=== PATIENT | female | born 1955 | race Caucasian/White ===

== ENCOUNTER → 2022-09-28 15:30 | Outpatient (CLI) | payer OTHER, SELFPAY ==
--- NOTE | ~2022-09-28 | XR_ITS ---
XR foot LT min 3V DATE: 09/28/2022 15:48 INDICATION: Dropped during table and top of foot 2 weeks ago. Pain. TECHNIQUE: 4 views COMPARISON: None FINDINGS: No fracture or dislocation, periosteal reaction or bone destruction is detected. Joint spac es are preserved. No erosive change. IMPRESSION: No fracture or dislocation Reviewed, dictated and finalized at location A. IMPRESSION: No fracture or dislocation
== END ==
PROVIDERS: PCP Family Medicine; Visit Provider Family Medicine
DX: M79.672 Pain in left foot (principal)
CPT/HCPCS: 73630

== ENCOUNTER 2022-10-20 14:59 | Outpatient (CLI) | payer OTHER, SELFPAY ==
[2022-10-20 15:33] LABS: Kit Draw Collected
== END 2022-10-20 15:00 | disposition home or self-care (01) ==
LOC: ANHGOSHLAB 15:02
PROVIDERS: PCP Family Medicine
DX: L65.9 Nonscarring hair loss, unspecified (principal); Z13.0 Encounter for screening for diseases of the blood and blood-forming organs and certain disorders involving the immune mechanism; L30.9 Dermatitis, unspecified; L27.0 Generalized skin eruption due to drugs and medicaments taken internally
CPT/HCPCS: 36415

== ENCOUNTER 2023-04-03 15:56 | Outpatient (CLI) | payer OTHER, SELFPAY ==
[2023-04-03 20:05] LABS: Anion Gap 9 mmol/L (8-16); Blood Urea Nitrogen 13 mg/dL (7-17); Calcium 9.6 mg/dL (8.4-10.2); Carbon Dioxide 26 mmol/L (22-30); Chloride 103 mmol/L (98-107); Estimated Glomerular Filt Rate > 60; Glucose 92 mg/dL (65-110); Sodium 138 mmol/L (137-145)
[2023-04-03 20:14] LABS: Parathyroid Intact 55.6 pg/mL (7.5-53.5)
[2023-04-05 11:15] LABS: Ionized Calcium 4.9 mg/dL (4.7-5.5)
== END 2023-04-03 15:57 | disposition home or self-care (01) ==
LOC: ANHGOSHLAB 15:57
PROVIDERS: PCP Emergency Medicine; Visit Provider Emergency Medicine
DX: E83.52 Hypercalcemia (principal)
CPT/HCPCS: 36415; 80048; 82330; 83970

== ENCOUNTER 2023-05-29 15:41 | Outpatient (CLI) | payer OTHER, SELFPAY ==
[2023-05-29 19:39] LABS: Vitamin D 25 Hydroxy 38.1 ng/mL
== END 2023-05-29 15:42 | disposition home or self-care (01) ==
LOC: ANHGOSHLAB 15:43
PROVIDERS: PCP Emergency Medicine
DX: J31.0 Chronic rhinitis (principal)
CPT/HCPCS: 36415; 82306; 82785; 86003

== ENCOUNTER 2023-10-09 15:57 | Outpatient (CLI) | payer OTHER, SELFPAY ==
[2023-10-09 19:29] LABS: Alanine Aminotransferase 23 U/L (6-35); Albumin Level 4.6 g/dL (3.5-5.1); Alkaline Phosphatase 96 U/L (38-126); Anion Gap 11 mmol/L (4-12); Aspartate Amino Transferase 37 U/L (14-36); Bilirubin,Total 0.5 mg/dL (0.2-1.3); Blood Urea Nitrogen 12 mg/dL (7-17); Calcium 9.5 mg/dL (8.4-10.2); Carbon Dioxide 26 mmol/L (22-30); Chloride 101 mmol/L (98-107); Estimated Glomerular Filt Rate > 60; Glucose 91 mg/dL (65-110); Potassium 3.7 mmol/L (3.4-5.0); Sodium 138 mmol/L (137-145)
[2023-10-09 19:41] LABS: Parathyroid Intact 81.1 pg/mL (7.5-53.5)
== END 2023-10-09 15:58 | disposition home or self-care (01) ==
LOC: ANHGOSHLAB 15:58
PROVIDERS: PCP Emergency Medicine; Visit Provider Emergency Medicine
DX: E21.3 Hyperparathyroidism, unspecified (principal)
CPT/HCPCS: 36415; 80053; 82330; 83970; 84443

== ENCOUNTER 2024-06-25 07:54 | Outpatient (CLI) | payer OTHER, SELFPAY ==
--- OUTSIDE RECORDS SUMMARY | 2024-06-25 08:00 | XMS_ITS | Encounter Summary ---
Author Organization [facility] Address [address] [place] [address] Care Team Providers Care Transportation Planning Engineer Name Role Phone Polo Bishop MD Primary Care Provider [phone] Encounter Details Date Type Department Care Team (Late st Contact Info) Description 10/29/1998 Outpatient Historical [facility] Virginia Mcgee Endometrial hyperplasia (Primary Dx) Social History Tobacco Use Types Packs/Day Years Used Date Smoking Tobacco: Never Assessed Comments Unknown Sex and Gender Information Value Date Recorded Sex Assigned at Not on file Legal Sex Female 2:37 AM MEDICAL MANAGEMENT SPECIALIST Gender Identity Not on file Sexual Orientation Not on file documented as of this encounter Plan of Treatment Upcoming Encounters Date Type Department Care Team (Late st Contact Info) Description 10/22/2024 3:30 PM CDT [facility] Visit [facility] ELECTRIC METER READER - [address] [phone] Jayda Powell ROOFER METAL [address] [place] [address] documented as of this encounter Visit Diagnoses Diagnosis Endometrial hyperplasia- Primary documented in this encounter Care Teams Transportation Planning Engineer Relationship Specialty Start Date End Date Pool Bishop MD [address] [place] [address] [place] [address] PCP - General Internal Medicine 08/30/20 documented as of this encounter
--- OUTSIDE RECORDS SUMMARY | 2024-06-25 08:00 | XMS_ITS | Encounter Summary ---
Author Organization [facility] Address [address] [place] [address] Care Team Providers Care Produce Wrapper Name Role Phone Polo Bishop MD Primary Care Provider Encounter Details Date Type Department Care Team (Late st Contact Info) Description 05/06/1999 Outpatient Historical [facility] Yoselyn Melendez MD NO ADDRESS ON FILE Unspecified disorder of female genital organs (Primary Dx) Social History Tobacco Use Types Packs/Day Years Used Date Smoking Tobacco: Never Assessed Comments Unknown Sex and Gender Information Value Date Recorded Sex Assigned at Not on file Legal Sex Female 2:37 AM PARTS DRIVER Gender Identity Not on file Sexual Orientation Not on file documented as of this encounter Plan of Treatment Upcoming Encounters Date Type Department Care Team (Late st Contact Info) Description 10/22/2024 3:30 PM CDT Office Visit [facility] ENTRY SPECIALIST - [address] [phone] Jayda Powell NP [address] [place] [address] documented as of this encounter Visit Diagnoses Diagnosis Unspecified disorder of female genital organs- Primary documented in this encounter Care Teams Produce Wrapper Relationship Specialty Start Date End Date Polo Bishop MD [address] [place] [address] [place] [address] PCP - General Internal Medicine 08/30/20 documented as of this encounter
--- OUTSIDE RECORDS SUMMARY | 2024-06-25 08:00 | XMS_ITS | Referral Summary ---
Author Organization [facility] [address] [facility] [address] Address [address] [place] [address] Care Team Providers Care Gear Keeper Name Role Phone Polo Bishop MD Primary Care Provider [phone] Encounters Date Type Department Care Team Description 04/08/2024 3:30 PM RENTAL CAR FERRY DRIVER Office Visit [facility] Cardiology [address] [place] [address] Sánchez Ryan MD Paroxysmal atrial fibrillation (HCC) (Primary Dx) from Last 3 Months Allergies Active Allergy Reactions Criticality Noted Date Comments Brimonidine-Timolol Other (See comments) Medium 2017 Eyes inflamed & painful Morphine Nausea & Vomiting Low 02/01/2010 Netarsudil Other (See comments) Low 09/06/2018 Dry, irritated, red eyes Penicillins Stomach upset Low 05/29/2017 Sulfa (Sulfonamide Antibiotics) Stomach upset Low 05/29/2017 Medications bimatoprost (LUMIGAN) 0.01 % ophthalmic drops 1 drop nightly Activ e dorzolamide-susan olol, PF, 2-0.5 % dropperette Administer into affected eye(s) 2 (two) times a day. Active cycloSPORINE (RESTASIS) 0.05 % ophthalmic emulsion 1 drop 2 (two) times a day Active Xiidra 5 % dropperette INSTILL 1 DROP INTO BOTH EYES TWICE A DAY DIRECTED 08/29/19 21 Active multivitamin with iron tablet Take 1 tablet by mouth daily Active cranberry 400 mg capsule Take by mouth Activ e Xarelto 20 mg tablet TAKE 1 TABLET BY MOUTH EVERY DAY 90 tablet 2 03/24/19 25 Active sotaloL (BETAPACE) 80 mg tablet TAKE 1 TABLET BY MOUTH TWICE A DAY 180 tablet 06/25/19 25 Active sotaloL (BETAPACE) 80 mg tablet TAKE 1 TABLET BY MOUTH TWICE A DAY 180 tablet 03/24/19 25 025 Discontinued Active Problems Problem Noted Date Diagnosed Date Paroxysmal atrial fibrillation 05/29/2017 Social History Tobacco Use Types Packs/Day Years Used Date Smoking Tobacco: Never Smokeless Tobacco: Never Tobacco Cessation:Counseling Given: Not Answered Alcohol Use Standard Drinks/Week Comments No 0 (1 standard drink = 0.6 oz pur e alcohol) Comments Unknown Sex and Gender Information Value Date Recorded Sex Assigned at Not on file Legal Sex Female 7:59 PM RENTAL CAR FERRY DRIVER Gender Identity Not on file Sexual Orientation Not on file Last Filed Vital Signs Vital Sign Reading Time Taken Comments Blood Pressure 118/80 04/08/2024 3:32 PM RENTAL CAR FERRY DRIVER Pulse 62 04/08/2024 3:32 PM RENTAL CAR FERRY DRIVER Temperature - - Respiratory Rate - - Oxygen Saturation 99% 04/08/2024 3:32 PM RENTAL CAR FERRY DRIVER Inhaled Oxygen Concentration - - Weight 88.5 kg (195 lb) 04/08/2024 3:32 PM RENTAL CAR FERRY DRIVER Height 162.6 cm (5' 4 ) 04/08/2024 3:32 PM RENTAL CAR FERRY DRIVER Body Mass Index 33.47 04/08/2024 3:32 PM RENTAL CAR FERRY DRIVER Plan of Treatment Not on file Procedures Procedure Name Priority Date/Time Associated Diagnosis Comments LIPID PANEL Routine 04/08/2024 3:25 PM RENTAL CAR FERRY DRIVER ELECTROCARDIOGRAM REPORT Routine 025 12:12 PM RENTAL CAR FERRY DRIVER Paroxysmal atrial fibrillation (HCC) from Last 3 Months Results * Lipid panel (04/08/2024 3:25 PM RENTAL CAR FERRY DRIVER) SCRIBED Cholesterol, Total 258 <100 EX[facility] LAB Comment:40 SCRIBED LDL 168 <100 EXTERNAL LAB SCRIBED Triglycerides 249 <150 EXTERNAL LAB Blood 04/08/2024 3:25 PM RENTAL CAR FERRY DRIVER us Sánchez Ryan MD LAB BLOOD ORDERABLES Fin al Result EXTERNAL LAB * Electrocardiogram Report (04/08/2024 12:12 PM RENTAL CAR FERRY DRIVER) us Sánchez Ryan MD ECG ORDERABLES Final Re sult from Last [place] [address] [facility] Care Teams Gear Keeper Relationship Specialty Start Date End Date Polo Bishop MD [address] [place] [address] PCP - General Internal Medicine 04/23/17
--- OUTSIDE RECORDS SUMMARY | 2024-06-25 08:00 | XMS_ITS | Encounter Summary ---
Author Organization [facility] Address 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) Social History Tobacco Use Types Packs/Day Years Used Date Smoking Tobacco: Never Assessed Comments Unknown Sex and Gender Information Value Date Recorded Sex Assigned at Not on file Legal Sex Female 2:37 AM HOT AIR FURNACE INSTALLER AND REPAIRER Gender Identity Not on file Sexual Orientation Not on file documented as of this encounter Plan of Treatment Upcoming Encounters Date Type Department Care Team (Late st Contact Info) Description 10/22/2024 3:30 PM CDT Office Visit [facility] DENTAL EQUIPMENT MECHANIC - [address] [phone] Jayda Powell NP [address] [place] [address] documented as of this encounter Visit Diagnoses Diagnosis Malignant neoplasm of central portion of female breast (CMS/HCC) Malignant neoplasm of central portion of female breast documented in this encounter Care Teams Foil Stamp Operator Relationship Specialty Start Date End Date Polo Bishop MD [address] [place] [phone] PCP - General Internal Medicine 08/30/20 documented as of this encounter
--- OUTSIDE RECORDS SUMMARY | 2024-06-25 08:00 | XMS_ITS | Encounter Summary ---
Author Organization [facility] Address [address] [place] [address] Care Team Providers Care Milk Receiver Tank Truck Name Role Phone Polo Bishop MD Primary Care Provider [phone] Encounter Details Date Type Department Care Team (Latest Contact Info) Description 08/31/2007 Outpatient Historical [facility], [address] Yoselyn Melendez MD NO ADDRESS ON FILE Laboratory Examination Social History Tobacco Use Types Packs/Day Years Used Date Smoking Tobacco: Never Assessed Comments Unknown Sex and Gender Information Value Date Recorded Sex Assigned at Not on file Legal Sex Female 2:37 AM BATCHING OPERATOR Gender Identity Not on file Sexual Orientation Not on file documented as of this encounter Plan of Treatment Upcoming Encounters Date Type Department Care Team (Late st Contact Info) Description 10/22/2024 3:30 PM CDT Office Visit [facility] SHOES HAND SEWER - [address] [address] Jayda Powell NP [address] [place] [address] documented as of this encounter Procedures Procedure Name Priority Date/Time Associated Diagnosis Comments CBC WITH DIFFERENTIAL Routine 08/31/2007 12:45 PM CDT CALCITRIOL Routine 08/31/2007 12:45 PM CDT LIPID PANEL Routine 08/31/2007 12:45 PM CDT COMPREHENSIVE METABOLIC PANEL Routine 08/31/2007 12:45 PM CDT documented in this encounter Results * (ABNORMAL) VITAMIN D 1,25 DIHYDROXY (08/31/2007 12:45 PM CDT) Pathologist [facility] VITAMIN D 1,25 DIHYDROXY 67(H) pg/mL [facility] Comment: Reference Range: 15-60 Lab test performed by: [email or web address] [address] [place] [address] Angel HARE MD Blood specimen (specimen) 08/31/2007 12:45 PM CDT 08/31/2007 1:37 PM CDT us Yoselyn Melendez MD CHEMISTRY ORDERABLES Final R esult [facility] CLIA# [id number] [address] [facility] [place] [address] * CBC WITH DIFFERENTIAL (08/31/2007 12:45 PM CDT) [facility] WBC 6.3 4.0 - 9.8 K/uL [facility] MCH 29.5 27.2 - 32.6 pg [facility] MPV 10.2 9.3 - 12.4 fL [facility] HEMATOCRIT 41.3 35.5 - 44.0 % [facility] RDW-STDEV 41.1 37.1 - 48.7 fL [facility] RBC 4.71 3.90 - 4.90 M/uL [facility] MCHC 33.7 31.5 - 35.5 % [facility] MCV 87.7 82.0 - 99.0 fL [facility] PLATELETS 254 140 - 350 K/uL [facility] HEMOGLOBIN 13.9 11.8 - 14.8 g/dL [facility] RDW 12.8 11.5 - 14.5 % [facility] LYMPHOCYTES 25 16 - 45 % [facility] LYMPHOCYTE ABSOLUTE 1.57 0.70 - 4.50 K/uL [facility] BASOPHILS 0 0 - 2 % [facility] BASOPHILS ABSOLUTE 0.02 0.00 - 0.20 K/uL [facility] MONOCYTES 7 3 - 13 % [facility] MONOCYTE ABSOLUTE 0.44 0.10 - 1.30 K/uL [facility] NEUTROPHILS 65 45 - 70 % [facility] NEUTROPHIL ABSOLUTE 4.10 1.90 - 7.00 K/uL [facility] EOSINOPHILS 3 0 - 7 % [facility] EOSINOPHIL ABSOLUTE 0.18 0.00 - 0.70 K/uL [facility] Blood specimen (specimen) 08/31/2007 12:45 PM CDT 08/31/2007 1:26 PM CDT us Yoselyn Melendez MD HEMATOLOGY ORDERABLES Edited INTERFACE SYSTEM Refer to clinic/hospital department [facility] CLIA# [id number] [address] [facility] [place] [address] * (ABNORMAL) LIPID PANEL (08/31/2007 12:45 PM CDT) TRIGLYCERIDE 87 10 - 149 mg/dL [facility] HDL 58 40 - 59 mg/dL [facility] CHOL/HDL RATIO 3.9 2.0 - 5.0 [facility] CHOLESTEROL 228(H) 100 - 199 mg/dL [facility] LDL CALCULATED 153(H) <=99 mg/dL [facility] LIPID PANEL COMMENT See Below [facility] Comment: The adult ATP and pediatric NCEP classifications for lipids are available on the [facility] Intranet at: [email or web address] Select: Lab Policies and Procedures,Current Select: Lipid Panel Interpretation Blood specimen (specimen) 08/31/2007 12:45 PM CDT 08/31/2007 1:24 PM CDT Narrative [facility] - 08/31/2007 2:42 PM CDT FASTING us Yoselyn Melendez MD CHEMISTRY ORDERABLES Edited [facility] CLIA# [id number] [address] [place], [place] [address] * COMPREHENSIVE METABOLIC PANEL (08/31/2007 12:45 PM CDT) CREATININE 0.65 0.51 - 0.95 mg/dL [facility] SODIUM 138 135 - 145 mmol/L [facility] ALT 16 0 - 31 U/L [facility] ALKALINE PHOSPHATASE 98 35 - 104 U/L [facility] BILIRUBIN TOTAL 0.5 0.2 - 1.0 mg/dL [facility] CO2 24 22 - 30 mmol/L [facility] TOTAL PROTEIN 7.8 6.3 - 8.6 g/dL [facility] POTASSIUM 3.5 3.5 - 4.9 mmol/L [facility] GLUCOSE 78 65 - 99 mg/dL [facility] AST 23 12 - 32 U/L [facility] BUN 10 6 - 20 mg/dL [facility] CALCIUM 8.8 8.4 - 10.2 mg/dL [facility] CHLORIDE 101 96 - 108 mmol/L [facility] ALBUMIN 4.6 3.4 - 4.8 g/dL [facility] GFR, >60 >=60 mL/min/1.7 sq meter [facility] GFR >60 >=60 mL/min/1.7 sq meter [facility] Comment: Modification of Diet in Renal Disease (MDRD) study formula. Estimated GFR rate interpretative information for both Americans and non- Americans is available on the [facility] Intranet at: [email or web address] Select: Lab Policies and Procedures Select: Reference Ranges - GFR Blood specimen (specimen) 08/31/2007 12:45 PM CDT 08/31/2007 1:24 PM CDT us Yoselyn Melendez MD CHEMISTRY ORDERABLES Edited [facility] CLIA# [id number] [address] [facility] [place] [address] documented in this encounter Visit Diagnoses Diagnosis Laboratory examination documented in this encounter Care Teams Milk Receiver Tank Truck Relationship Specialty Start Date End Date Polo Bishop MD [address] [place] [phone] PCP - General Internal Medicine 08/30/20 documented as of this encounter
--- OUTSIDE RECORDS SUMMARY | 2024-06-25 08:00 | XMS_ITS | Encounter Summary ---
Author Organization [facility] Address [address] [place] [address] Care Team Providers Care Joist Setter Name Role Phone Polo Bishop MD Primary Care Provider [phone] Encounter Details Date Type Department Care Team (Latest Contact Info) Description 01/12/2000 Inpatient Historical [facility] Yoselyn Melendez MD NO ADDRESS ON FILE Polyp of corpus uteri (Primary Dx) Social History Tobacco Use Types Packs/Day Years Used Date Smoking Tobacco: Never Assessed Comments Unknown Sex and Gender Information Value Date Recorded Sex Assigned at Not on file Legal Sex Female 2:37 AM MEDICAL AFFAIRS DIRECTOR Gender Identity Not on file Sexual Orientation Not on file documented as of this encounter Plan of Treatment Upcoming Encounters Date Type Department Care Team (Late st Contact Info) Description 10/22/2024 3:30 PM CDT Office Visit [facility] SATELLITE INSTALLER [address] [facility] [address] [address] Jayda Powell NP [address] [place] [address] documented as of this encounter Visit Diagnoses Diagnosis Polyp of corpus uteri- Primary documented in this encounter Care Teams Joist Setter Relationship Specialty Start Date End Date Polo Bishop MD [address] [place] [address] [place] [address] PCP - General Internal Medicine 08/30/20 documented as of this encounter
--- OUTSIDE RECORDS SUMMARY | 2024-06-25 08:00 | XMS_ITS | Encounter Summary ---
Author Organization [facility] Address [address] [place] [address] Care Team Providers Care Nip Wrapper Name Role Phone Polo Bishop MD Primary Care Provider [phone] Encounter Details Date Type Department Care Team (Latest Contact Info) Description 08/15/2007 Outpatient Historical [facility], [address] Yoselyn Melendez MD NO ADDRESS ON FILE Screening for Malignant Neoplasm of the Cervix Social History Tobacco Use Types Packs/Day Years Used Date Smoking Tobacco: Never Assessed Comments Unknown Sex and Gender Information Value Date Recorded Sex Assigned at Not on file Legal Sex Female 2:37 AM STILL OPERATOR HELPER Gender Identity Not on file Sexual Orientation Not on file documented as of this encounter Plan of Treatment Upcoming Encounters Date Type Department Care Team (Late st Contact Info) Description 10/22/2024 3:30 PM CDT Office Visit [facility] PARTY PLAN SALES HOST/HOSTESS [address] [address] Jayda Powell NP [address] [place] [address] documented as of this encounter Procedures Procedure Name Priority Date/Time Associated Diagnosis Comments CERV/VAG CYTOPATH, SUREPATH AND HPV Routine 08/15/2007 10:53 PM CDT documented in this encounter Results * CERV/VAG CYTOPATH, SUREPATH AND HPV (08/15/2007 10:53 PM CDT) SOURCE Vagina [facility] LAST MENSTRUAL PERIOD [facility] HPV HIGH RISK DNA DETECTION NOT DETECTED [facility] Comment: REFERENCE RANGE: NOT DETECTED PATIENTS WITHOUT HIGH-RISK HPV RARELY HAVE CERVICAL CANCER. THE ANALYTICAL PERFORMANCE CHARACTERISTICS OF THIS ASSAY, WHEN USED TO TEST SUREPATH OR VAGINAL SPECIMENS, HAVE BEEN DETERMINED BY [employer]. METHODOLOGY: HYBRID CAPTURE WITH SIGNAL AMPLIFICATION. Lab test performed by: [facility] [address] [place] [address] POLO AMADOR MD ORACLE SOFTWARE ENGINEER: SOPHIE SUTHERLAND(ASCP) [facility] Comment: Lab test performed by: [facility] [employer] [facility] [address] [place] [address] POLO AMADOR MD REPORT STATUS FINAL [facility] PREV PAP: Information not provided [facility] ADEQUACY: SATISFACTORY FOR EVALUATION [facility] PREV BX: Information not provided [facility] CLINICAL INFORMATION Normal exam Hysterectomy, total [facility] PAP INTERP Negative for intraepithelial lesion or malignancy. Atrophic pattern; predominantly parabasal cells [facility] Vaginal 08/15/2007 10:5 3 PM CDT 08/15/2007 11:01 PM CDT us Yoselyn Melendez MD PATHOLOGY/CYTOLOGY ORDERABLE S Edited [facility] CLIA# [id number] [address] [place] [address] documented in this encounter Visit Diagnoses Diagnosis Screening for malignant neoplasm of the cervix documented in this encounter Care Teams Nip Wrapper Relationship Specialty Start Date End Date Polo Bishop MD [address] [place] [phone] PCP - General Internal Medicine 08/30/20 documented as of this encounter
--- OUTSIDE RECORDS SUMMARY | 2024-06-25 08:00 | XMS_ITS | Continuity of Care Document ---
Author Organization [facility] Address [address] [facility] [address] [place] [address] Phone Care Team Providers Care Master Sonar Technician Name Role Phone Jade HWANG, Dunia Unavailable Unavailable Allergies, Adverse Reactions, Alerts Substance Reaction Status Criticality BEPOTASTINE BESILATE Active No Info rmation morphine Active No Information TIMOLOL MALEATE Active No Informati on BRIMONIDINE TARTRATE Active No Info rmation NETARSUDIL MESYLATE Active No Infor mation lifitegrast Active No Information Medications Medication Instructions Dosage Effective Dates (start - stop) Status Comments oasis tears (unknown strength) Not Available - Active Centrum Silver Women 8 mg iron-400 mcg-50 mcg tablet - Active cranberry 400 mg capsule - Active desoximetasone 0.05 % topical gel apply by topical route 2 times every day a thin layer to the affected area(s) ; rub in gently and completely 0.00 - Active eye vitamins ORAL CAPSULE - Active Flonase Allergy Relief 50 mcg/actuation nasal spray,suspension inhale 2 spray by intranasal route every day in each nostril 100 MCG - Active juice plus (unknown strength) Not Available - Active ipratropium bromide 21 mcg (0.03 %) nasal spray spray 2 spray by intranasal route 2- 3 times every day in each nostril 2.00 spray - Active mometasone furoate (bulk) 100 % powder - Active sotalol 80 mg tablet take 1 tablet by oral route 2 times every day 80 MG - Active Singulair 10 mg tablet take 1 tablet by oral route every day in the evening 10 MG - Active Pataday Once Daily Relief 0.2 % eye drops instill 1 drop by ophthalmic route every day into affected eye(s) 1.00 drop - Active Vanicream Moisturizing lotion - Active Vanicream topical - Active Vyzulta 0.024 % eye drops instill 1 drop by ophthalmic route every day into affected eye(s) in the evening 1.00 drop - Active Xarelto 20 mg tablet take 1 tablet by oral route every day with the evening meal 20 MG - Active COSOPT PF (unknown strength) instill 1 drop by ophthalmic route 2 times every day into affected eye(s) Not Available - Active Procedures Procedure Date OFFICE/OUTPATIENT VISIT, NEW GDX Optic Nerve OFFICE/OUTPATIENT VISIT, EST Results Test Name Date and Time Measure Units Reference Range Abnormal Flag Status Commen ts Panel Description: [id number] Final Image Zeiss Result 5 Panel Description: [id number] Final Image Zeiss Result 6 Panel Description: [id number] Final Image Zeiss Result 7 Panel Description: [id number] Final Image Zeiss Result 8 Panel Description: [id number] Final Image Zeiss Result 9 Panel Description: [id number] Final Image Zeiss Result 10 Panel Description: [id number] Final Image Zeiss Result 11 Panel Description: [id number] Final Image Zeiss Result 1 Panel Description: [id number] Final Image Zeiss Result 2 Panel Description: [id number] Final Image Zeiss Result 3 Panel Description: [id number] Final Image Zeiss Result 4 Advance Directives Directive Yes / No Effective Date File Name No Information Encounters Encounter Description Practice Location Reason(s) For Visit Diagnoses Date Provider Providers Copied on Encounter OFFICE/OUTPA TIENT VISIT, [facility], [address], [id number], tel:[phone] OPH CONSULT CASANDRA NAM glaucoma evaluation (chief complaint)g edmond half circles (chief complaint) Primary open angle glaucoma (POAG) of right eye, moderate stagePrimary open angle glaucoma (POAG) of left eye, severe stagePresence of intraocular lensTear film insufficiency of bilateral lacrimal glands 4 Jade Duque. [address] [facility], [address], [place], [place], [id number], . tel:[phone] Family History Family Member Type Diagnosis Age At Onset Maternal aunt Problem glaucoma Mother Problem glaucoma Maternal grandfather Problem glaucoma Payers Payer name Insurance type Covered constitution party ID Samantha pritchett(s) [facility] CI [id number] Social History Type Description Quantity Date Captured Comments Alcohol Use Details Unknown Caffeine Use Details Unknown Tobacco Use Status Current non-smoker Smoking Status Never smoker Non-Smoking Tobacco Use Details : No Details Available : No Details Available Sex Female Chief Complaint And Reason For Visit From encounter dated '05/22/2023 14:00'. glaucoma evaluation (chief complaint). Description: The 67 year old female presents for evaluation of glaucoma evaluation. OS is more blurry than OD. She is pseudophakic OU. She has had a laser surgery but she is unsure what it was (laser that made dozens of holes in the back of the eye). She denies any pain but they are often dry. She does use Cosopt BID, Vyzulta QHS, Patataday as needed for allergy eyes and [place] BID, sometimes TID. ward half circles (chief complaint). Description: The patient is present for evaluation of ward half circles. She states that when she looks at something with a subgrade tester background she can see half circles that do not move. Reason For Referral Reason For Referral No Information History Of Present Illness Encounter Date Complaint History Of Prese nt Illness ward half circles The patient is present for evaluation of ward half circles. She states that when she looks at something with a subgrade tester background she can see half circles that do not move. glaucoma evaluation The 67 year old female presents for evaluation of glaucoma evaluation. OS is more blurry than OD. She is pseudophakic OU. She has had a laser surgery but she is unsure what it was (laser that made dozens of holes in the back of the eye). She denies any pain but they are often dry. She does use Cosopt BID, Vyzulta QHS, Patataday as needed for allergy eyes and [place] BID, sometimes TID. Functional Status Date Functional Assessmen t No Information Instructions Date Instruction Additional Infor mation Impression/Plan Related to Prima ry open angle glaucoma (POAG) of right eye, moderate stage Impression/Plan Related to Prima ry open angle glaucoma (POAG) of left eye, severe stage Impression/Plan Related to Prese nce of intraocular lens Impression/Plan Related to Tear film insufficiency of bilateral lacrimal glands Assessments Type Assessment Date assessment Primary open angle g [place] (POAG) of right eye, moderate stage assessment Primary open angle glaucoma (POA G) of left eye, severe stage impression Primary open angle g [place] (POAG) of right eye, moderate stage: H40.1112.Pt is on Cosopt BID, Vyzulta QHS impression Primary open angle g [place] (POAG) of left eye, severe stage: H40.1123 assessment Presence of intraocular lens May impression Presence of intraocular lens: Z9 6.1.s/p PCIOL OU 2010 assessment Tear film insufficiency of bilat eral lacrimal glands impression Tear film insufficie ncy of bilateral lacrimal glands: H04.123.Pt uses [place] BID-TID Patient Care Teams Name Effective Dates (start - stop) Status Members No Information
--- OUTSIDE RECORDS SUMMARY | 2024-06-25 08:00 | XMS_ITS | Clinical Summary ---
Author Organization [facility] [address] [place] [address] [place] [phone] Care Team Providers Care Sales And Business Development Manager Name Role Phone Polo Bishop MD Primary Care Provider [phone] Allergies Active Allergy Reactions Criticality Noted Date Comments Bepotastine Besilate Other (See Comments) Low 01/05 Bepreve eye drops- redness, irritation Brimonidine Tartrate Unknown 05/22/2023 Brimonidine-Timolol Other (See Comments) Low 2017 Combigan eye drops--Eyes inflamed & painful Lifitegrast Other (See Comments) Low 01/05/2022 Xiidra eye drops- redness, irritation Morphine Nausea and Vomiting Low 02/01/2010 Netarsudil Other (See Comments) 09/06/2018 Rhopressa--Dry, irritated, red eyes Netarsudil Mesylate Unknown 05/22/2023 Medications sotalol (BETAPACE) 80 mg tablet Take 80 mg by mouth 2 times daily . Active OTHER daily Juice plus . Active CRANBERRY ORAL Take 2 Capsules by mouth daily. Active COSOPT, PF, 2-0.5 % Dropperette solution INSTILL 1 DROP IN EACH EYE 2 TIMES DAILY 4 9 Active mometasone (ELOCON) 0.1 % Cream APPLY TO AFFECTED EAR TWICE A DAY FOR ONE WEEK THEN WEAN TO ONCE DAILY 2 Active rivaroxaban (Xarelto) 20 mg Tablet Take 1 Tablet by mouth daily. 2 Active Vyzulta 0.024 % Drops 3 Active ipratropium bromide (ATROVENT) 42 mcg (0.06 %) Superior, Non-Aerosol USE 2 SPRAYS IN EACH NOSTRIL EVERY DAY NEEDED RUNNY NOSE 3 Active montelukast (SINGULAIR) 10 mg tablet Take 10 mg by mouth daily. 3 Active tacrolimus (PROTOPIC) 0.03 % Ointment 3 Active olopatadine (Pataday Once Daily Relief) 0.2 % solution by Ophthalmic route every 24 hours. Active tcitrtxa-lmw-foi n-FA-vit K-lut (Centrum Silver Women) 8 mg iron-400 mcg-50 mcg Tablet Active fluticasone propionate (Flonase Allergy Relief) 50 mcg/spray Superior, Suspension nasal inhaler Administer 2 Sprays in each nostril every 24 hours. Active emollient combination no.115 (Vanicream Moisturizing) Lotion Active cranberry fruit concentrate 215 mg Capsule Active clobetasoL (TEMOVATE) 0.05 % Cream APPLY TO AFFECTED AREA DAILY. USE SPARINGLY 30 Gram 4 Active Active Problems Patient Care Coordination No te Formatting of this note migh t be different from the original. 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 History of breast cancer 10/15/2019 Tubular adenoma of colon 01/29/2015 Osteopenia 02/01/2010 Stroke Overview (02/01/2010): cerebral infarction aged 27 Breast Cancer, RIGHT UOQ, cT 2N0, beO9mS1 ER(+) (ICD10 C50.411) Overview (08/20/2015): 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 ypN0) ER/LA(+) Neoadjuvant Adriamycin Chemotherapy Lumpectomy/AxLND (05/1996) RT (Iglesia): Whole breast completed in 08/1996 Adjuvant chemo: CMF x 8 Tamoxifen x 5 years Protocol: NSABP 33 exemestane versus placebo - was on placebo, then switched exemestane Encounters Date Type Department Care Team Description 04/23/2024 External Device Data ST[facility] ABSTRACTION Provider, Abstract 03/27/2024 External Device Data ST[facility] ABSTRACTION Provider, Abstract from Last 3 Months Immunizations Immunization Administration Dates Next Due INFLUENZA VACCINE QUADRIVALENT 6 MOS UP CELL MIR IVED IM 03/12/2018 INFLUENZA VACCINE QUADRIVALE NT 6 MOS UP CELL DERIVED PF IM 02/07/2019 Family History Medical History Relation Name Comments Colon Polyps Father Heart Disease Father Breast Cancer Mother stage 4 Cancer Mother cancer has move d to her neck Colon Cancer Paternal Aunt Celiac Disease Neg Hx Cervical Cancer Neg Hx Crohn's Disease Neg Hx Kidney Disease Neg Hx Liver Disease Neg Hx Ovarian Cancer Neg Hx Pancreatic Cancer Neg Hx Ulcerative Colitis Neg Hx Ulcers Neg Hx Uterine Cancer Neg Hx Relation Name Status Comments Father Mother Alive Paternal Aunt Social History Tobacco Use Types Packs/Day Years Used Date Smoking Tobacco: Never Smokeless Tobacco: Never Tobacco Cessation:Counseling Given: Not Answered Alcohol Use Standard Drinks/Week Comments Not Currently 0 (1 standard drink = 0.6 oz pur e alcohol) rarely Comments No Sex and Gender Information Value Date Recorded Sex Assigned at Not on file Legal Sex Female 2:37 AM CAFETERIA CLERK Gender Identity Not on file Sexual Orientation Not on file Occupation Industry Job Start Date Job End Date Not on file Not on file Not on file Not on file Last Filed Vital Signs Vital Sign Reading Time Taken Comments Blood Pressure 120/80 10/22/2023 3:18 PM CDT Pulse 92 10/22/2023 3:18 PM CDT Temperature 36.7 C (98 F) 10/22/2023 3:18 PM CDT Respiratory Rate 16 01/19/2022 12:57 PM CAFETERIA CLERK Oxygen Saturation 95% 10/22/2023 3:18 PM CDT Inhaled Oxygen Concentration - - Weight 88.5 kg (195 lb) 10/22/2023 3:18 PM CDT Height 162.6 cm (5' 4 ) 10/22/2023 3:18 PM CDT Body Mass Index 33.47 10/22/2023 3:18 PM CDT Plan of Treatment Upcoming Encounters Date Type Department Care Team (Late st Contact Info) Description 10/22/2024 3:30 PM CDT Office Visit [facility] HADOOP ADMINISTRATOR [id number] [address] Jayda Powell NP [address] [place] [address] Health Maintenance Due Date Last Done Comments Pre-Diabetes and Diabetes Screening 1955 DTAP/TDAP/TD VACCINES (1 - Tdap) 07/12/1975 FIT-DNA Q 3 years 2001 Flex Sig/CT Colonography Q 5 years 2001 PNEUMOCOCCAL VACCINE 50+ YEA RS (1 of 1 - PCV) 2006 ZOSTER VACCINE (1 of 2) 2006 OSTEOPOROSIS SCREENING 02/02/2012 02/01/2010 FIT/FOBT Q 1 year 07/13/2016 07/14/2015, 09/16/2013 INFLUENZA VACCINE (#1) 2023 02/07/2019, 2018 BREAST CANCER SCREENING 10/18/2024 10/19/19 24, 10/02/2022, 09/29/2021, Additional history exists COLORECTAL SCREENING 01/19/2025 01/19/2022, 01/19/2022, 01/23/2015 Colorectal Cancer Screening 01/19/2025 UPPER GI ENDOSCOPY 01/19/2025 01/19/2022, 01/23/2015 RSV VACCINE (60+ or ) (1 - 1-dose 75+ series) 07/12/2031 Medical Devices Implanted Type Area Rack Cleaner Device Identifier Shelf Expiration Date Model / Serial / Lot Clip Endo Resolution 360 235cm [id number] - [id number] Implanted:Qty: 1 on 01/19/2022 by Narinder Storm MD at [facility] Clip N/A: Stomach [employer] [id number] 09/28/2024 [id number] / / [id number] Clip Endo Resolution 360 235cm [id number] - [id number] Implanted:Qty: 1 on 01/19/2022 by Narinder Storm MD at [facility] Clip N/A: Stomach [employer] [id number] 09/28/2024 [id number] / / [id number] Clip Endo Resolution 360 Ultra 2.8mm 235cm [id number] - [id number] Implanted:Qty: 1 on 01/19/2022 by Narinder Storm MD at [facility] Clip N/A: Stomach [employer]SEPH [id number] 08/28/2024 [id number] / / [id number] Eye Drain Procedures Procedure Name Priority Date/Time Associated Diagnosis Comments MAMMO 3D ANTONIO SCREEN BILAT W OR WO CAD Routine 10/19/2023 3:42 PM CDT Breast cancer screening by mammogram Breast density History of breast cancer COLONOSCOPY REPORT 01/19/2022 12 :40 PM CAFETERIA CLERK POC OCCULT BLOOD, IMMUNO, QUAL, STOOL Routine 07/14/2015 11:11 AM CDT Screening for malignant neoplasm of the rectum XR DEXA BONE DENSITY AXIAL 1 OR MORE SITES Routine 02/01/2010 2:02 PM CAFETERIA CLERK Stroke (CMS/HCC) Malignant neoplasm of breast (female), unspecified site (CMS/HCC) Axillary swelling Osteopenia from Last 3 Months or Most Recently Relevant to Health Maintenance Results * MAMMO SCRN BILAT 3D ANTONIO W OR WO CAD (10/19/2023 3:42 PM CDT) Anatomical Region Laterality Modality Breast Bilateral Mammography 10/19/2023 3:42 PM CDT Impressions 10/20/2023 7:08 AM CDT IMPRESSION: No mammographic evidence of malignancy. RECOMMENDATIONS: Routine screening mammogram in one year. DICTATION LOCATION: [facility] Narrative 10/20/2023 7:08 AM CDT BILATERAL FULL-FIELD DIGITAL SCREENING MAMMOGRAM WITH CAD WITH 3D TOMOSYNTHESIS DATE: 10/19/2023 3:42 PM HISTORY: Routine screening. TECHNIQUE: Full-field digital craniocaudal and mediolateral oblique projections of both breasts were obtained. Low-dose full-field digital breast tomosynthesis examination was performed with 2D and 3D acquisitions. Examination is read in conjunction with computer aided detection. COMPARISON: 2022, 2021, 2020 BREAST COMPOSITION: The breasts are heterogeneously dense, which may obscure small masses. FINDINGS: No suspicious mass, suspicious microcalcifications, or architectural distortion in either breast is identified. Since the prior study, there has been no significant interval change. Calcifications are unchanged. Postoperative changes again seen in the right breast. The computer aided diagnosis detects no significant abnormality. OVERALL FINAL ASSESSMENT: BI-RADS CATEGORY 2: Benign findings Procedure Note Russell Gray MD - 10/20/2023 BILATERAL FULL-FIELD DIGITAL SCREENING MAMMOGRAM WITH CAD WITH 3D TOMOSYNTHESIS DATE: 10/19/2023 3:42 PM HISTORY: Routine screening. TECHNIQUE: Full-field digital craniocaudal and mediolateral oblique projections of both breasts were obtained. Low-dose full-field digital breast tomosynthesis examination was performed with 2D and 3D acquisitions. Examination is read in conjunction with computer aided detection. COMPARISON: 2022, 2021, 2020 BREAST COMPOSITION: The breasts are heterogeneously dense, which may obscure small masses. FINDINGS: No suspicious mass, suspicious microcalcifications, or architectural distortion in either breast is identified. Since the prior study, there has been no significant interval change. Calcifications are unchanged. Postoperative changes again seen in the right breast. The computer aided diagnosis detects no significant abnormality. OVERALL FINAL ASSESSMENT: BI-RADS CATEGORY 2: Benign findings IMPRESSION: No mammographic evidence of malignancy. RECOMMENDATIONS: Routine screening mammogram in one year. DICTATION LOCATION: [facility] us Jayda Powell NP MAMMO ORDERABLES Final Resu lt * COLONOSCOPY REPORT (01/19/2022 12:40 PM CAFETERIA CLERK) Narrative Procedure Note Narinder Storm MD - 01/19/2022 12:40 PM CST [facility] Endoscopy Patient Name: China De La Cruz Procedure Date: 01/19/2022 Date of : 1955 Attending MD: Narinder Storm MD, Procedure: Colonoscopy Indications: Surveillance: Personal history of adenomatous polyps on last colonoscopy > 5 years ago, Last colonoscopy: January 2015 Providers: Narinder Storm MD Referring MD: Polo Bishop MD Complications: No immediate complications. Procedure: Informed consent was obtained for the procedure, including moderate sedation after risks were discussed. Based on the pre-procedure assessment, including review of the patient's medical history, medications, allergies, and review of systems, the patient was deemed to be an appropriate candidate for sedation. A timeout was performed. Continuous ECG monitoring, pulse oximetry, blood pressure monitoring, and direct observation were performed. The scope was introduced through the anus and advanced to the terminal ileum. The colonoscopy was performed without difficulty. The patient tolerated the procedure well. The quality of the bowel preparation was adequate to identify polyps. Estimated Blood Loss: Estimated blood loss was minimal. Findings: The digital rectal exam was normal. The terminal ileum appeared normal. Multiple diverticula were found in the entire colon. A 12 mm polyp was found in the ascending colon. The polyp was sessile. The polyp was removed with a hot snare. Resection and retrieval were complete. To prevent bleeding after the polypectomy, one hemostatic clip was successfully placed (MR conditional). A 2 mm polyp was found in the hepatic flexure. The polyp was sessile. The polyp was removed with a cold biopsy forceps. Resection and retrieval were complete. A 4 mm polyp was found in the splenic flexure. The polyp was sessile. The polyp was removed with a cold snare. Resection and retrieval were complete. Non-bleeding internal hemorrhoids were found. The hemorrhoids were medium-sized. No additional abnormalities were found on retroflexion. A tattoo was seen at 15 cm proximal to the anus. The tattoo site appeared normal. Impression: - The examined portion of the ileum was normal. - Diverticulosis in the entire examined colon. - One 12 mm polyp in the ascending colon, removed with a hot snare. Resected and retrieved. Clip (MR conditional) was placed. - One 2 mm polyp at the hepatic flexure, removed with a cold biopsy forceps. Resected and retrieved. - One 4 mm polyp at the splenic flexure, removed with a cold snare. Resected and retrieved. - Noted previously placed tattoo at 15 cm from anal verge, site appears normal - Non-bleeding internal hemorrhoids. Recommendation: - Discharge patient to home. - Continue present medications. - Await pathology results. - If you are active on [employer], you will receive the biopsy results as a message via that account. If you do not have [employer] account, you will receive a call from my office regarding your results. If you do not hear from us about your results within a week, please contact our office at [phone] . Narinder Storm MD 01/19/2022 12:39:58 PM This report has been signed electronically. Number of Addenda: [address]; [place] [address] us Narinder Storm MD GI PROCEDURE ORDERABLES Final Result * POC OCCULT BLOOD, IMMUNO, QUAL, STOOL (07/14/2015 11:11 AM CDT) OCCULT BLOOD, IMMUNOASSAY STOOL1 POC Negative [facility] OCCULT BLOOD, IMMUNOASSAY STOOL2 POC [facility] OCCULT BLOOD, IMMUNOASSAY STOOL3 POC [facility] Stool specimen (specimen) STOOL SPECIMEN / Unknown 07/14/2015 11:11 AM CDT us Belen Buenrostro MD POINT OF CARE TESTING Final Result [facility] * XR DEXA BONE DENSITY AXIAL 1 OR MORE SITES (02/01/2010 2:02 PM CAFETERIA CLERK) Anatomical Region Laterality Modality Computed Radiogr aphy 02/01/2010 2:01 PM CAFETERIA CLERK Impressions 02/01/2010 2:51 PM CAFETERIA CLERK IMPRESSION: Lumbar spine: This patient's bone mineral density of the spine is mildly osteopenic when compared to the normal range of young adults and present fracture risk is considered to be low but could increase by age 65. Hips: This patient's bone mineral density of the hip is mildly osteopenic when compared to the normal range of young adults and present fracture risk is considered to be very low but could increase by age 65. Comments: None. Detailed report to follow. Dictated by Dr. Stepan Vanessa MD Narrative 02/01/2010 2:51 PM CAFETERIA CLERK Examination: Bone Density Study (DEXA) Clinical History: 54 year-old postmenopausal female with personal history of breast cancer. Evaluate current bone density. Findings: Lumbar Spine ( L 1-4 ) spine bone mineral density is 1.05 g/sq cm and corresponds to a T-score of -1.1. Femoral neck densities: Left femoral neck bone mineral density is 0.85 g/sq cm and corresponds to a T-score of -1.4. Right femoral neck bone mineral density is 0.90 g/sq cm and corresponds to a T-score of -1.0. Average femoral neck bone mineral density is 0.87 g/sq cm and corresponds to a T-score of -1.2. Procedure Note Stepan Vanessa MD - 02/01/2010 Examination: Bone Density Study (DEXA) Clinical History: 54 year-old postmenopausal female with personal history of breast cancer. Evaluate current bone density. Findings: Lumbar Spine ( L 1-4 ) spine bone mineral density is 1.05 g/sq cm and corresponds to a T-score of -1.1. Femoral neck densities: Left femoral neck bone mineral density is 0.85 g/sq cm and corresponds to a T-score of -1.4. Right femoral neck bone mineral density is 0.90 g/sq cm and corresponds to a T-score of -1.0. Average femoral neck bone mineral density is 0.87 g/sq cm and corresponds to a T-score of -1.2. IMPRESSION IMPRESSION: Lumbar spine: This patient's bone mineral density of the spine is mildly osteopenic when compared to the normal range of young adults and present fracture risk is considered to be low but could increase by age 65. Hips: This patient's bone mineral density of the hip is mildly osteopenic when compared to the normal range of young adults and present fracture risk is considered to be very low but could increase by age 65. Comments: None. Detailed report to follow. Dictated by Dr. Stepan Vanessa MD Kaitlin Perales MD DIAGNOSTIC IMAGING ORDERABLES Final Result from Last 3 Months or Most Recently Relevant to Health Maintenance Insurance [facility] [id number] Advance Directives For more information, please contact: [phone] * Full Code (Latest Code Status on File) Date Activated Date Inactivated Comments 11/28/2016 3:53 PM 11/29/2016 3:41 PM * Full Code Date Activated Date Inactivated Comments 11/28/2016 3:01 PM 11/28/2016 3:53 PM * Full Code Date Activated Date Inactivated Comments 11/28/2016 12:54 PM 11/28/2016 3:01 PM * Full Code Date Activated Date Inactivated Comments 01/23/2015 9:54 AM 01/23/2015 2:26 PM Care Teams Sales And Business Development Manager Relationship Specialty Start Date End Date Polo Bishop MD [address] [place] [phone] PCP - General Internal Medicine 08/30/20
--- OUTSIDE RECORDS SUMMARY | 2024-06-25 08:00 | XMS_ITS | Clinical Summary ---
Author Organization [facility] [address] Address [address] [place] [address] Care Team Providers Care Longwall Headgate Operator Name Role Phone Polo Bishop MD Primary Care Provider [phone] Allergies Active Allergy Reactions Criticality Noted Date [...] MOUTH TWICE A DAY 180 tablet 03/24/19 025 Discontinued Active Problems Problem Noted Date Diagnosed Date Paroxysmal atrial fibrillation 05/29/2017 Encounters Date Type Department Care Team Description 04/08/2024 3:30 PM GLOBAL SOURCING MANAGER Office Visit [facility] Medical Group Cardiology [address] [place] [address] Sánchez Ryan MD Paroxysmal atrial fibrillation (HCC) (Primary Dx) from Last 3 Months Surgical History Surgery Date Site/Laterality Comments APPENDECTOMY CHOLECYSTECTOMY OPEN HYSTERECTOMY Medical History Medical History Date Comments Atrial fibrillation (HCC) Stroke (HCC) Cancer (HCC) Rheumatic fever Kidney stones Family History Medical History Relation Name Comments Emphysema Father Cancer Mother Hypertension Mother Relation Name Status Comments Father Mother Alive Social History Tobacco Use Types Packs/Day Years Used Date Smoking Tobacco: Never Smokeless Tobacco: Never Tobacco Cessation:Counseling Given: Not Answered Alcohol Use Standard Drinks/Week Comments No 0 (1 standard drink = 0.6 oz pur e alcohol) Comments Unknown Sex and Gender Information Value Date Recorded Sex Assigned at Not on file Legal Sex Female 7:59 PM GLOBAL SOURCING MANAGER Gender Identity Not on file Sexual Orientation Not on file Obstetrics History Last Filed Vital Signs Vital Sign Reading Time Taken Comments Blood Pressure 118/80 04/08/2024 3:32 PM GLOBAL SOURCING MANAGER Pulse 62 04/08/2024 3:32 PM GLOBAL SOURCING MANAGER Temperature - - Respiratory Rate - - Oxygen Saturation 99% 04/08/2024 3:32 PM GLOBAL SOURCING MANAGER Inhaled Oxygen Concentration - - Weight 88.5 kg (195 lb) 04/08/2024 3:32 PM GLOBAL SOURCING MANAGER Height 162.6 cm (5' 4 ) 04/08/2024 3:32 PM GLOBAL SOURCING MANAGER Body Mass Index 33.47 04/08/2024 3:32 PM GLOBAL SOURCING MANAGER Plan of Treatment Health Maintenance Due Date Last Done Comments Colon Cancer Screening-Colonoscopy 1955 Depression Screening 1955 Fall Risk Assessment 1955 Hepatitis C Screening 1955 DTaP/Tdap/Td Vaccine (1 - Tdap) 07/12/1967 Hepatitis B Screening 1974 Pneumococcal vaccine 65+ (1 of 1 - PCV) 2006 Zoster Vaccine (1 of 2) 2006 Osteoporosis Screening-Bone Density Scan 02/02/2012 02/01/2010 Well Visit 65+ 2021 Breast Cancer Screening-Mammogram 10/18/2024 10/19/2023, 10/19/2023, 10/02/2022, Additional history exists Influenza Vaccine (Season Ended) 2024 02/07/2019, 02/07/2019, 03/12/2018 Procedures Procedure Name Priority Date/Time Associated Diagnosis Comments LIPID PANEL Routine 04/08/2024 3:25 PM GLOBAL SOURCING MANAGER ELECTROCARDIOGRAM REPORT Routine 025 12:12 PM GLOBAL SOURCING MANAGER Paroxysmal atrial fibrillation (HCC) from Last 3 Months Results * Lipid panel (04/08/2024 3:25 PM GLOBAL SOURCING MANAGER) SCRIBED Cholesterol, Total 258 <100 EXTERNAL LAB Comment:40 SCRIBED LDL 168 <100 EXTERNAL LAB SCRIBED Triglycerides 249 <150 EXTERNAL LAB Blood 04/08/2024 3:25 PM GLOBAL SOURCING MANAGER Sánchez Ryan MD LAB BLOOD ORDERABLES Fin al Result Performing Organization Address City/State/[facility] Co de Phone Number EXTERNAL LAB * Electrocardiogram Report (04/08/2024 12:12 PM GLOBAL SOURCING MANAGER) us Sánchez Ryan MD ECG ORDERABLES Final Re sult from Last 3 Months Insurance [facility] [employer] [employer] Address: [facility] [id number] [place] [address] [facility] [employer] [facility] [facility] [employer] Address: [place] [address] Care Teams Longwall Headgate Operator Relationship Specialty Start Date End Date Polo Bishop MD [address] [place] [address] PCP - General Internal Medicine 04/23/17
[2024-06-25 20:55] LABS: Albumin Level 4.6 g/dL (3.5-5.1); Anion Gap 13 mmol/L (4-12); Blood Urea Nitrogen 10 mg/dL (7-17); Calcium 9.4 mg/dL (8.4-10.2); Carbon Dioxide 21 mmol/L (22-30); Chloride 105 mmol/L (98-107); Estimated Glomerular Filt Rate > 60; Glucose 100 mg/dL (65-110); Potassium 4.1 mmol/L (3.4-5.0); Sodium 139 mmol/L (137-145)
[2024-06-25 21:16] LABS: Cortisol Baseline 1.39 ug/dL
[2024-06-25 21:20] LABS: Vitamin D 25 Hydroxy 38.3 ng/mL
[2024-06-25 21:25] LABS: Parathyroid Intact 42.6 pg/mL (14.5-75.2)
[2024-06-26 10:38] LABS: Ionized Calcium 5.1 mg/dL (4.7-5.5)
== END 2024-06-25 07:55 | disposition home or self-care (01) ==
LOC: ANHGOSHLAB 07:55
PROVIDERS: PCP Emergency Medicine; Visit Provider Internal Medicine Endocrinology, Diabetes & Metabolism
DX: E21.3 Hyperparathyroidism, unspecified (principal); E55.9 Vitamin D deficiency, unspecified; D35.00 Benign neoplasm of unspecified adrenal gland
CPT/HCPCS: 36415; 80069; 82306; 82330; 82533; 83835; 83970

== ENCOUNTER 2024-06-30 09:11 | Outpatient (NON) | payer OTHER, SELFPAY ==
--- OUTSIDE RECORDS SUMMARY | 2024-06-30 09:46 | XMS_ITS | Referral Summary ---
Author Organization [facility] [address] [facility] [address] [place] [address] Care Team Providers Care Swatch Checker Name Role Phone Polo Bishop MD Primary Care Provider [phone] Encounters Date Type Department Care Team Description 04/08/2024 3:30 PM RN IMCU Office Visit [facility] Medical Group Cardiology [address] [place] [address] Sánchez Ryan MD Paroxysmal atrial [...] on file Legal Sex Female 7:59 PM RN IMCU Gender Identity Not on file Sexual Orientation Not on file Last Filed Vital Signs Vital Sign Reading Time Taken Comments Blood Pressure 118/80 04/08/2024 3:32 PM RN IMCU Pulse 62 04/08/2024 3:32 PM RN IMCU Temperature - - Respiratory Rate - - Oxygen Saturation 99% 04/08/2024 3:32 PM RN IMCU Inhaled Oxygen Concentration - - Weight 88.5 kg (195 lb) 04/08/2024 3:32 PM RN IMCU Height 162.6 cm (5' 4 ) 04/08/2024 3:32 PM RN IMCU Body Mass Index 33.47 04/08/2024 3:32 PM RN IMCU Plan of Treatment Not on file Procedures Procedure Name Priority Date/Time Associated Diagnosis Comments LIPID PANEL Routine 04/08/2024 3:25 PM RN IMCU ELECTROCARDIOGRAM REPORT Routine 025 12:12 PM RN IMCU Paroxysmal atrial fibrillation (HCC) from Last 3 Months Results * Lipid panel (04/08/2024 3:25 PM RN IMCU) SCRIBED Cholesterol, Total 258 <100 EXTERNAL LAB Comment:40 SCRIBED LDL 168 <100 EXTERNAL LAB SCRIBED Triglycerides 249 <150 EXTERNAL LAB Blood 04/08/2024 3:25 PM RN IMCU us Sánchez Ryan MD LAB BLOOD ORDERABLES Fin al Result EXTERNAL LAB * Electrocardiogram Report (04/08/2024 12:12 PM RN IMCU) us Sánchez Ryan MD ECG ORDERABLES Final Re sult from Last 3 [place] [address] [facility] PL[facility] Care Teams Swatch Checker Relationship Specialty Start Date End Date Polo Bishop MD [address] [place] [address] PCP - General Internal Medicine 04/23/17
--- OUTSIDE RECORDS SUMMARY | 2024-06-30 09:46 | XMS_ITS | Encounter Summary ---
Author Organization [facility] Address [address] [place] [address] Care Team Providers Care Tacking Machine Operator Name Role Phone Polo Bishop MD Primary Care Provider [phone] Encounter Details Date Type Department Care Team (Latest Contact Info) Description 08/15/2007 Outpatient Historical [facility], [address] Yoselyn Melendez MD NO ADDRESS ON FILE Screening for Malignant Neoplasm of the Cervix Social History Tobacco Use Types Packs/Day Years Used Date Smoking Tobacco: Never Assessed Comments Unknown Sex and Gender Information Value Date Recorded Sex Assigned at Not on file Legal Sex Female 2:37 AM ANODIZING LINE OPERATOR Gender Identity Not on file Sexual Orientation Not on file documented as of this encounter Plan of Treatment Upcoming Encounters Date Type Department Care Team (Late st Contact Info) Description 10/22/2024 3:30 PM CDT Office Visit [facility] FOLLOW UP REP - [address] [facility] [address] [address] Jayda Powell NP [address] [place] [address] documented as of this encounter Procedures Procedure Name Priority Date/Time Associated Diagnosis Comments CERV/VAG CYTOPATH, SUREPATH AND HPV Routine 08/15/2007 10:53 PM CDT documented in this encounter Results * CERV/VAG CYTOPATH, SUREPATH AND HPV (08/15/2007 10:53 PM CDT) SOURCE Vagina [facility] LAST MENSTRUAL PERIOD [facility] HPV HIGH RISK DNA DETECTION NOT DETECTED [facility] Comment: REFERENCE RANGE: NOT DETECTED PATIENTS WITHOUT HIGH-RISK HPV RARELY HAVE CERVICAL CANCER. THE ANALYTICAL PERFORMANCE CHARACTERISTICS OF THIS ASSAY, WHEN USED TO TEST SUREPATH OR VAGINAL SPECIMENS, HAVE BEEN DETERMINED BY [facility]. METHODOLOGY: HYBRID CAPTURE WITH SIGNAL AMPLIFICATION. Lab [facility]: [facility] [address] [place] [address] POLO AMADOR MD CUSTOMER EXPERIENCE LEADER: SOPHIE SUTHERLAND(ASCP) [facility] Comment: Lab test performed by: [facility] [address] [place] [address] POLO AMADOR MD REPORT STATUS FINAL [facility] PREV PAP: Information not provided [facility] ADEQUACY: SATISFACTORY FOR EVALUATION [facility] PREV BX: Information not provided [facility] CLINICAL INFORMATION Normal exam Hysterectomy, total [facility] PAP INTERP Negative for intraepithelial lesion or malignancy. Atrophic pattern; predominantly parabasal cells [facility] Vaginal 08/15/2007 10:5 3 PM CDT 08/15/2007 11:01 PM CDT us Yoselyn Melendez MD PATHOLOGY/CYTOLOGY ORDERABLE S Edited [facility] CLIA# [id number] [address] [place] [address] documented in this encounter Visit Diagnoses Diagnosis Screening for malignant neoplasm of the cervix documented in this encounter Care Teams Tacking Machine Operator Relationship Specialty Start Date End Date Polo Bishop MD [address] [place] [phone] PCP - General Internal Medicine 08/30/20 documented as of this encounter
--- OUTSIDE RECORDS SUMMARY | 2024-06-30 09:46 | XMS_ITS | Clinical Summary ---
Author Organization [facility] [address] Address [address] [place] [address] Care Team Providers Care Veterinary Attendant Name Role Phone Polo Bishop MD Primary Care Provider [phone] Allergies Active Allergy Reactions Criticality Noted Date [...] Department Care Team Description 04/08/2024 3:30 PM IMPORT COORDINATION AND PRODUCTION HEAD Office Visit [facility] Cardiology [address] [place] [address] Sánchez Ryan MD Paroxysmal atrial fibrillation (HCC) [...] on file Legal Sex Female 7:59 PM IMPORT COORDINATION AND PRODUCTION HEAD Gender Identity Not on file Sexual Orientation Not on file Obstetrics History Last Filed Vital Signs Vital Sign Reading Time Taken Comments Blood Pressure 118/80 04/08/2024 3:32 PM IMPORT COORDINATION AND PRODUCTION HEAD Pulse 62 04/08/2024 3:32 PM IMPORT COORDINATION AND PRODUCTION HEAD Temperature - - Respiratory Rate - - Oxygen Saturation 99% 04/08/2024 3:32 PM IMPORT COORDINATION AND PRODUCTION HEAD Inhaled Oxygen Concentration - - Weight 88.5 kg (195 lb) 04/08/2024 3:32 PM IMPORT COORDINATION AND PRODUCTION HEAD Height 162.6 cm (5' 4 ) 04/08/2024 3:32 PM IMPORT COORDINATION AND PRODUCTION HEAD Body Mass Index 33.47 04/08/2024 3:32 PM IMPORT COORDINATION AND PRODUCTION HEAD Plan of Treatment Health Maintenance Due Date [...] Comments LIPID PANEL Routine 04/08/2024 3:25 PM IMPORT COORDINATION AND PRODUCTION HEAD ELECTROCARDIOGRAM REPORT Routine 025 12:12 PM IMPORT COORDINATION AND PRODUCTION HEAD Paroxysmal atrial fibrillation (HCC) from Last 3 Months Results * Lipid panel (04/08/2024 3:25 PM IMPORT COORDINATION AND PRODUCTION HEAD) SCRIBED Cholesterol, Total 258 <100 EX[facility] LAB Comment:40 SCRIBED LDL 168 <100 [facility] LAB SCRIBED Triglycerides 249 <150 EXTERNAL LAB Blood 04/08/2024 3:25 PM IMPORT COORDINATION AND PRODUCTION HEAD Sánchez Ryan MD LAB BLOOD ORDERABLES Fin al Result Performing Organization Address City/State/[facility] Co de Phone Number EXTERNAL LAB * Electrocardiogram Report (04/08/2024 12:12 PM IMPORT COORDINATION AND PRODUCTION HEAD) us Sánchez Ryan MD ECG ORDERABLES Final Re sult from Last 3 Months Insurance [facility] CHOICE PLUS [facility] HMO/PPO Address: [facility] [id number] [place] [address] [facility] CHOICE PLUS [facility] HMO/PPO Address: [place] [address] Care Teams Veterinary Attendant Relationship Specialty Start Date End Date Polo Bishop MD [address] [place] [address] PCP - General Internal Medicine 04/23/17
--- OUTSIDE RECORDS SUMMARY | 2024-06-30 09:46 | XMS_ITS | Encounter Summary ---
Author Organization [facility] Address [address] [place] [address] Care Team Providers Care Soft Metals Hand Engraver Name Role Phone Polo Bishop MD Primary [...] on file Legal Sex Female 2:37 AM KEY HOLDER Gender Identity Not on file Sexual Orientation Not on file documented as of this encounter Plan of Treatment Upcoming Encounters Date Type Department Care Team (Late st Contact Info) Description 10/22/2024 3:30 PM CDT Office Visit [facility] HOUSE MOTHER - [address] [address] Jayda Powell DIVINITY TEACHER [address] [place] [address] documented as of this encounter Visit Diagnoses Diagnosis Endometrial hyperplasia- Primary documented in this encounter Care Teams Soft Metals Hand Engraver Relationship Specialty Start Date End Date Polo Bishop MD [address] [place] [address] [place] [address] PCP - General Internal Medicine 08/30/20 documented as of this encounter
--- OUTSIDE RECORDS SUMMARY | 2024-06-30 09:46 | XMS_ITS | Clinical Summary ---
Author Organization [facility] [address] [place] [address] [place] [address] Care Team Providers Care Sales And Marketing Vice President Name Role Phone Polo Bishop MD Primary Care Provider [phone] Allergies Active Allergy Reactions Criticality Noted Date [...] ipratropium bromide (ATROVENT) 42 mcg (0.06 %) [place], Non-Aerosol USE 2 SPRAYS IN EACH NOSTRIL EVERY DAY NEEDED RUNNY NOSE 3 Active montelukast (SINGULAIR) 10 mg tablet Take 10 mg by mouth daily. 3 Active tacrolimus (PROTOPIC) 0.03 % Ointment 3 Active olopatadine (Pataday Once Daily Relief) 0.2 % solution by Ophthalmic route every 24 hours. 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 History of breast cancer 10/15/2019 Tubular adenoma of colon 01/29/2015 Osteopenia 02/01/2010 Stroke Overview (02/01/2010): cerebral infarction aged 27 Breast Cancer, RIGHT UOQ, cT 2N0, evP6sB4 ER(+) (ICD10 C50.411) Overview (08/20/2015): 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 ypN0) ER/MI(+) Neoadjuvant Adriamycin Chemotherapy Lumpectomy/AxLND (05/1996) RT (Iglesia): [...] on file Legal Sex Female 2:37 AM GRAVITY PROSPECTOR Gender Identity Not on file Sexual Orientation [...] CDT Respiratory Rate 16 01/19/2022 12:57 PM GRAVITY PROSPECTOR Oxygen Saturation 95% 10/22/2023 3:18 PM CDT Inhaled Oxygen Concentration - - Weight 88.5 kg (195 lb) 10/22/2023 3:18 PM CDT Height 162.6 cm (5' 4 ) 10/22/2023 3:18 PM CDT Body Mass Index 33.47 10/22/2023 3:18 PM CDT Plan of Treatment Upcoming Encounters Date Type Department Care Team (Late st Contact Info) Description 10/22/2024 3:30 PM CDT Office Visit [facility] CUSTOMER SERVICE AGENT - [address] [facility] [address] [address] Jayda Powell, LAYA [address] [facility] [address] [place] [address] Health Maintenance Due Date Last [...] series) 07/12/2031 Medical Devices Implanted Type Area Maintenance Worker Device Identifier Shelf Expiration Date Model / Serial / Lot Clip Endo Resolution 360 235cm [id number] - [id number] Implanted:Qty: 1 on 01/19/2022 by Narinder Storm MD at [facility] Clip N/A: Stomach [employer] [id number] 09/28/2024 [id number] / / [id number] Clip Endo Resolution 360 235cm [id number] - [id number] Implanted:Qty: 1 on 01/19/2022 by Narinder tSorm MD at [facility] Clip N/A: Stomach [employer] [id number] 09/28/2024 [id number] / / [id number] Clip Endo Resolution 360 Ultra 2.8mm 235cm [id number] - [id number] Implanted:Qty: 1 on 01/19/2022 by Narinder Storm MD at [facility] Clip N/A: Stomach Splash JOSEPH [id number] 08/28/2024 [id number] / / [id number] Eye Drain Procedures Procedure Name Priority Date/Time Associated Diagnosis Comments MAMMO 3D ANTONIO SCREEN BILAT W OR WO CAD Routine 10/19/2023 3:42 PM CDT Breast cancer screening by mammogram Breast density History of breast cancer COLONOSCOPY REPORT 01/19/2022 12 :40 PM GRAVITY PROSPECTOR POC OCCULT BLOOD, IMMUNO, QUAL, STOOL Routine 07/14/2015 11:11 AM CDT Screening for malignant neoplasm of the rectum XR DEXA BONE DENSITY AXIAL 1 OR MORE SITES Routine 02/01/2010 2:02 PM GRAVITY PROSPECTOR Stroke (CMS/HCC) Malignant neoplasm of breast (female), [...] screening mammogram in one year. DICTATION LOCATION: [facility] 10/20/2023 7:08 AM CDT BILATERAL FULL-FIELD DIGITAL [...] screening mammogram in one year. DICTATION LOCATION: [facility] us Jayda Powell NP MAMMO ORDERABLES Final Resu lt * COLONOSCOPY REPORT (01/19/2022 12:40 PM GRAVITY PROSPECTOR) Narrative Procedure Note Narinder Storm MD - 01/19/2022 12:40 PM CST [facility] Endoscopy Patient Name: China De [...] - If you are active on My [employer], you will receive the biopsy results as a message via that account. If you do not have [employer] account, you will receive a call from my office regarding your results. If you do not hear from us about your results within a week, please contact our office at [phone] . Narinder Storm MD 01/19/2022 12:39:58 PM This report has been signed electronically. Number of Addenda: [address]; [place] [address] us Narinder Storm MD GI PROCEDURE ORDERABLES [...] 1 OR MORE SITES (02/01/2010 2:02 PM GRAVITY PROSPECTOR) Anatomical Region Laterality Modality Computed Radiogr aphy 02/01/2010 2:01 PM GRAVITY PROSPECTOR Impressions 02/01/2010 2:51 PM GRAVITY PROSPECTOR IMPRESSION: Lumbar spine: This patient's bone mineral [...] Stepan Vanessa MD Narrative 02/01/2010 2:51 PM GRAVITY PROSPECTOR Examination: Bone Density Study (DEXA) Clinical History: [...] Most Recently Relevant to Health [place] [address] [place] [id number] Advance Directives For more information, please contact: [phone] * Full Code (Latest Code Status on [...] 01/23/2015 2:26 PM Care Teams Sales And Marketing Vice President Relationship Specialty Start Date End Date Polo Bishop MD [address] [place], [place] [address] [address] PCP - General Internal Medicine 08/30/20
--- OUTSIDE RECORDS SUMMARY | 2024-06-30 09:46 | XMS_ITS | Encounter Summary ---
Author Organization [facility] Address [address] [place] [address] Care Team Providers Care Community Coordinator Name Role Phone Polo Bishop MD Primary Care Provider [phone] Encounter Details Date Type Department Care Team (Latest Contact Info) Description 04/01/2008 Outpatient Historical [facility] Radiation Oncology [address] [place] [phone] Shahrzad Parekh MD NO ADDRESS ON FILE Malignant Neoplasm of Central Portion of Female Breast (CMS/HCC) Social History Tobacco Use Types Packs/Day Years Used Date Smoking Tobacco: Never Assessed Comments Unknown Sex and Gender Information Value Date Recorded Sex Assigned at Not on file Legal Sex Female 2:37 AM LICENSED MARINE ENGINEER Gender Identity Not on file Sexual Orientation Not on file documented as of this encounter Plan of Treatment Upcoming Encounters Date Type Department Care Team (Late st Contact Info) Description 10/22/2024 3:30 PM CDT Office Visit [facility] BAGGAGE SMASHER [address] [facility] [address] [address] Jayda Powell NP [address] [place] [address] documented as of this encounter Visit Diagnoses Diagnosis Malignant neoplasm of central portion of female breast (CMS/HCC) Malignant neoplasm of central portion of female breast documented in this encounter Care Teams Community Coordinator Relationship Specialty Start Date End Date Polo Bishop MD [address] [place] [address] PCP - General Internal Medicine 08/30/20 documented as of this encounter
--- OUTSIDE RECORDS SUMMARY | 2024-06-30 09:46 | XMS_ITS | Encounter Summary ---
Author Organization [facility] Address [address] [place] [address] Care Team Providers Care Boiler House Operator Name Role Phone Polo Bishop MD Primary Care Provider [phone] Encounter Details Date Type Department Care Team [...] on file Legal Sex Female 2:37 AM SUPERVISOR STATEMENT CLERKS Gender Identity Not on file Sexual Orientation Not on file documented as of this encounter Plan of Treatment Upcoming Encounters Date Type Department Care Team (Late st Contact Info) Description 10/22/2024 3:30 PM CDT Office Visit [facility] [employer] [address] [address] Jayda Powell NP [address] [place] [address] documented as of this encounter Visit Diagnoses Diagnosis Unspecified disorder of female genital organs- Primary documented in this encounter Care Teams Boiler House Operator Relationship Specialty Start Date End Date Polo Bishop MD [address] [place] [address] [place] [address] PCP - General Internal Medicine 08/30/20 documented as of this encounter
--- OUTSIDE RECORDS SUMMARY | 2024-06-30 09:46 | XMS_ITS | Continuity of Care Document ---
Author Organization [facility] Address [address] [facility] [address] [place] [address] Phone Care Team Providers Care Field Map Technician Name Role Phone Jade HWANG, Dunia [...] Abnormal Flag Status Commen ts Panel Description: [id number] Final Image [employer] Result 5 Panel Description: [id number] Final Image Zeiss Result 6 Panel Description: [id number] Final Image [employer]iss Result 7 Panel Description: [id number] Final Image [employer]iss Result 8 Panel Description: [id number] Final Image [employer]iss Result 9 Panel Description: [id number] Final Image Zeiss Result 10 Panel Description: [id number] Final Image Zeiss Result 11 Panel Description: [id number] Final Image [employer]iss Result 1 Panel Description: [id number] Final Image [employer]iss Result 2 Panel Description: [id number] Final Image Zeiss Result 3 Panel Description: [id number] Final Image Zeiss Result 4 Advance Directives Directive Yes / No Effective Date File Name No Information Encounters Encounter Description Practice Location Reason(s) For Visit Diagnoses Date Provider Providers Copied on Encounter OFFICE/OUTPA TIENT VISIT, [facility], [address], [id number], tel:[phone] OPH CONSULT CASANDRA NAM glaucoma evaluation (chief complaint)g edmond half circles (chief complaint) Primary open angle glaucoma (POAG) of right eye, moderate stagePrimary open angle glaucoma (POAG) of left eye, severe stagePresence of intraocular lensTear film insufficiency of bilateral lacrimal glands 4 Jade Duque. [address] [facility], [address], [place], [place], [id number], . tel:[phone] Family History Family Member Type Diagnosis Age At Onset Maternal aunt Problem glaucoma Mother Problem glaucoma Maternal grandfather Problem glaucoma Payers Payer name Insurance type Covered democrat ID Samantha pritchett(s) [facility] CI [id number] Social History Type Description Quantity Date Captured [...] Patataday as needed for allergy eyes and Mascot BID, sometimes TID. ward half circles (chief complaint). Description: The patient is present for evaluation of ward half circles. She states that when she looks at something with a medical officer background she can see half circles that do not move. Reason For Referral Reason For Referral No Information History Of Present Illness Encounter Date Complaint History Of Prese nt Illness ward half circles The patient is present for evaluation of ward half circles. She states that when she looks at something with a medical officer background she can see half circles that [...] Patataday as needed for allergy eyes and Mascot BID, sometimes TID. Functional Status Date Functional [...] ncy of bilateral lacrimal glands: H04.123.Pt uses Mascot BID-TID Patient Care Teams Name Effective Dates (start - stop) Status Members No Information
--- OUTSIDE RECORDS SUMMARY | 2024-06-30 09:46 | XMS_ITS | Encounter Summary ---
Author Organization [facility] Address [address] [place] [address] Care Team Providers Care Electrical Prospector Name Role Phone Polo Bishop MD Primary [...] on file Legal Sex Female 2:37 AM MUSIC PASTOR Gender Identity Not on file Sexual Orientation Not on file documented as of this encounter Plan of Treatment Upcoming Encounters Date Type Department Care Team (Late st Contact Info) Description 10/22/2024 3:30 PM CDT Office Visit [facility] JOCKEY'S AGENT - [address] [facility] [address] [facility] [facility] [address] [address] Jayda Powell NP [address] [place] [address] documented as of this encounter Visit Diagnoses Diagnosis Polyp of corpus uteri- Primary documented in this encounter Care Teams Electrical Prospector Relationship Specialty Start Date End Date Polo Bishop MD [address] [place] [address] [place] [address] PCP - General Internal Medicine 08/30/20 documented as of this encounter
--- OUTSIDE RECORDS SUMMARY | 2024-06-30 09:46 | XMS_ITS | Encounter Summary ---
Author Organization [facility] Address 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 [place] [id number] documented as of this encounter Procedures Procedure Name Priority Date/Time Associated Diagnosis Comments CBC WITH DIFFERENTIAL Routine 08/31/2007 12:45 PM CDT CALCITRIOL Routine 08/31/2007 12:45 PM CDT LIPID PANEL Routine 08/31/2007 12:45 PM CDT COMPREHENSIVE METABOLIC PANEL Routine 08/31/2007 12:45 PM CDT documented in this encounter Results * (ABNORMAL) VITAMIN D 1,25 DIHYDROXY (08/31/2007 12:45 PM CDT) Pathologist [facility] VITAMIN D 1,25 DIHYDROXY 67(H) pg/mL [facility] Comment: Reference Range: 15-60 Lab test performed by: [employer] [id number] [place] [address] Angel HARE MD Blood specimen (specimen) 08/31/2007 12:45 PM CDT 08/31/2007 1:37 PM CDT us Yoselyn Melendez MD CHEMISTRY ORDERABLES Final R esult [facility] CLIA# [id number] [address] [facility] [place] [address] * CBC WITH DIFFERENTIAL (08/31/2007 12:45 PM CDT) [facility] WBC 6.3 4.0 - 9.8 K/uL [facility] MCH 29.5 27.2 - 32.6 pg [facility] MPV 10.2 9.3 - 12.4 fL [facility] HEMATOCRIT 41.3 35.5 - 44.0 % [facility] RDW-STDEV 41.1 37.1 - 48.7 fL [facility] RBC 4.71 3.90 - 4.90 M/uL [facility] MCHC 33.7 31.5 - 35.5 % [facility] MCV 87.7 82.0 - 99.0 fL [facility] PLATELETS 254 140 - 350 K/uL [facility] HEMOGLOBIN 13.9 11.8 - 14.8 g/dL [facility] RDW 12.8 11.5 - 14.5 % [facility] LYMPHOCYTES 25 16 - 45 % [facility] LYMPHOCYTE ABSOLUTE 1.57 0.70 - 4.50 K/uL [facility] BASOPHILS 0 0 - 2 % [facility] BASOPHILS ABSOLUTE 0.02 0.00 - 0.20 K/uL [facility] MONOCYTES 7 3 - 13 % [facility] MONOCYTE ABSOLUTE 0.44 0.10 - 1.30 K/uL [facility] NEUTROPHILS 65 45 - 70 % [facility] NEUTROPHIL ABSOLUTE 4.10 1.90 - 7.00 K/uL [facility] EOSINOPHILS 3 0 - 7 % [facility] EOSINOPHIL ABSOLUTE 0.18 0.00 - 0.70 K/uL [facility] Blood specimen (specimen) 08/31/2007 12:45 PM CDT 08/31/2007 1:26 PM CDT us Yoselyn Melendez MD HEMATOLOGY ORDERABLES Edited INTERFACE SYSTEM Refer to clinic/hospital department [facility] CLIA# [id number] [address] [facility] [place] [address] * (ABNORMAL) LIPID PANEL (08/31/2007 12:45 PM CDT) TRIGLYCERIDE 87 10 - 149 mg/dL [facility] HDL 58 40 - 59 mg/dL [facility] CHOL/HDL RATIO 3.9 2.0 - 5.0 [facility] CHOLESTEROL 228(H) 100 - 199 mg/dL [facility] LDL CALCULATED 153(H) <=99 mg/dL [facility] LIPID PANEL COMMENT See Below [facility] Comment: The adult ATP and pediatric NCEP classifications for lipids are available on the [facility] Intranet at: [email or web address] Select: Lab Policies and Procedures,Current Select: Lipid Panel Interpretation Blood specimen (specimen) 08/31/2007 12:45 PM CDT 08/31/2007 1:24 PM CDT Narrative [facility] - 08/31/2007 2:42 PM CDT FASTING us Yoselyn Melendez MD CHEMISTRY ORDERABLES Edited [facility] CLIA# [id number] [address] [place] [address] * COMPREHENSIVE METABOLIC PANEL (08/31/2007 12:45 PM CDT) CREATININE 0.65 0.51 - 0.95 mg/dL [facility] SODIUM 138 135 - 145 mmol/L [facility] ALT 16 0 - 31 U/L [facility] ALKALINE PHOSPHATASE 98 35 - 104 U/L [facility] BILIRUBIN TOTAL 0.5 0.2 - 1.0 mg/dL [facility] CO2 24 22 - 30 mmol/L [facility] TOTAL PROTEIN 7.8 6.3 - 8.6 g/dL [facility] POTASSIUM 3.5 3.5 - 4.9 mmol/L [facility] GLUCOSE 78 65 - 99 mg/dL [facility] AST 23 12 - 32 U/L [facility] BUN 10 6 - 20 mg/dL [facility] CALCIUM 8.8 8.4 - 10.2 mg/dL [facility] CHLORIDE 101 96 - 108 mmol/L [facility] ALBUMIN 4.6 3.4 - 4.8 g/dL [facility] GFR, >60 >=60 mL/min/1.7 sq meter [facility] GFR >60 >=60 mL/min/1.7 sq meter [facility] Comment: Modification of Diet in Renal Disease (MDRD) study formula. Estimated GFR rate interpretative information for both Americans and non- Americans is available on the [facility] Intran[facility] at: [email or web address] Select: Lab Policies and Procedures Select: Reference Ranges - GFR Blood specimen (specimen) 08/31/2007 12:45 PM CDT 08/31/2007 1:24 PM CDT us Yoselyn Melendez MD CHEMISTRY ORDERABLES Edited [facility] CLIA# [id number] [address] [facility] [place] [address] documented in this encounter Visit Diagnoses Diagnosis Laboratory examination documented in this encounter Care Teams Factory Worker Relationship Specialty Start Date End Date Polo Bishop MD [address] [place] [id number] PCP - General Internal Medicine 08/30/20 documented as of this encounter
[2024-06-30 12:14] LABS: Creatinine Urine 36.3 mg/dL
[2024-06-30 12:54] LABS: Total Volume 24 Hour Urine 3000 ml
== END 2024-06-30 09:12 | disposition home or self-care (01) ==
PROVIDERS: PCP Emergency Medicine; Visit Provider Internal Medicine Endocrinology, Diabetes & Metabolism
DX: E21.3 Hyperparathyroidism, unspecified (principal); E55.9 Vitamin D deficiency, unspecified; D35.00 Benign neoplasm of unspecified adrenal gland
CPT/HCPCS: 81050; 82340; 82570

== ENCOUNTER 2024-07-24 07:24 | Outpatient (CLI) | payer OTHER, SELFPAY ==
--- NOTE | ~2024-07-24 | CT_ITS ---
CT of the Abdomen and Pelvis: Indication: Adrenal mass protocol Technique: 2.5 mm axial scans were obtained through the abdomen and pelvis prior to and following in travenous administration of 100 cc of Omnipaque 350. Dose reduction technique was used on this scan b y utilizing automated exposure control and iterative reconstruction technique. The dose-length produc t (DLP) was 2174.97 mGy-cm. Findings: Scans through the lung bases are unremarkable. There is diffuse hepatic steatosis. The spleen, pancreas, right adrenal gland, and kidneys are within normal limits. Cholecystectomy clips are present. 10 mm left adrenal adenoma present. No evidence of aortic aneurysm. No lymphadenopathy. No bowel obstruction or bowel wall thickening. There is no evidence to suggest acute appendicitis. Images through the pelvis were performed. Urinary bladder unremarkable. No pelvic mass seen. Status p ost hysterectomy. No ascites. Impression: 10 mm left adrenal adenoma. Diffuse hepatic steatosis. Reviewed, dictated and finalized at [facility]. Impression: 10 mm left adrenal adenoma. Diffuse hepatic steatosis.
== END 2024-07-24 07:25 | disposition home or self-care (01) ==
PROVIDERS: Visit Provider Internal Medicine Endocrinology, Diabetes & Metabolism
DX: D35.02 Benign neoplasm of left adrenal gland (principal); K76.0 Fatty (change of) liver, not elsewhere classified
CPT/HCPCS: 74178; Q9967

== ENCOUNTER 2024-12-06 13:28 | Emergency (ER) | payer OTHER, SELFPAY ==
--- NOTE | 2024-12-06 13:30 | ED.URI ---
HPI - URI/Sore Throat General Chief Complaint: Upper Respiratory Infection Stated Complaint: SORE THROAT/NECK PAIN Time Seen by Provider: 12/06/24 13:30 Source: patient Mode of arrival: ambulatory Limitations: no limitations History of Present Illness HPI Narrative: [place] is a 69-year-old female patient presenting to the clinic today with complaints of sore throat, runny nose, body aches, and reports pain over the cervical lymph nodes. She reports symptoms have been going on since yesterday. Denies any fevers or chills. Has taken Tylenol her symptoms last night but has not taken anything this morning. Is leaving for [place] tomorrow. Is requesting antibiotics. Related Data Home Medications ?Medication ?Instructions ?Recorded ?Confirmed ?Last Taken ?Type rivaroxaban 20 mg tablet (Xarelto) 20 mg PO QPM 01/27/19 11/12/24 Unknown History sotalol 80 mg tablet 80 mg PO DAILY 01/27/19 11/12/24 Unknown History dorzolamide-timolol (PF) 2 %-0.5 % 1 drp EACH EYE BID 06/24/24 11/12/24 Unknown History eye drops in a dropperette (Cosopt (PF)) fluticasone propionate 50 2 spray intranasal DAILY 06/24/24 11/12/24 Unknown History mcg/actuation nasal spray,suspension (Flonase Allergy Relief) ipratropium bromide 42 mcg (0.06 2 spray intranasal TID 06/24/24 11/12/24 Unknown History %) nasal spray latanoprostene bunod 0.024 % eye 1 drp EACH EYE QPM 06/24/24 11/12/24 Unknown History drops (Vyzulta) levocetirizine 5 mg tablet (Xyzal) 5 mg PO DAILY 06/24/24 11/12/24 Unknown History magnesium citrate,mag oxide 250 mg mg PO 06/24/24 11/12/24 Unknown History capsule mometasone furoate EACH EAR 1XD 06/24/24 11/12/24 Unknown History montelukast 10 mg tablet 10 mg PO DAILY 06/24/24 11/12/24 Unknown History (Singulair) triamicentaline .Route 06/24/24 11/12/24 Unknown History Allergies Allergy/AdvReac Type Severity Reaction Status Date / Time brimonidine Allergy Severe Swelling Verified 12/06/24 14:00 Eyes morphine Allergy Severe Nausea Verified 12/06/24 14:00 Penicillins Allergy Mild nausea Verified 12/06/24 14:00 Review of Systems Review of Systems: Pertinent positives per HPI. Patient denies any fever, chills, rash, headache, visual changes, dizziness, cough, shortness of breath, chest pain, palpitations, nausea, vomiting, diarrhea, constipation, abdominal pain, or any urinary issues. 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) History of colon polyps Hx of malignant neoplasm of female breast Hx of malignant neoplasm of mouth Palpitations Surgical History Surgical History History of hysterectomy History of appendectomy Family History Family History Mother Family history of anemia Family history of malignant neoplasm of breast in first degree relative Family history of malignant neoplasm of breast Father Family history of emphysema Family history of chronic obstructive pulmonary disease Grandparent Family history of cardiovascular disease Other Family history of glaucoma Family history of kidney disease Social History Social History Smoking status: Never smoker Second hand tobacco smoke exposure: No Alcohol intake: never Substance use: never Lack of Transportation: No Lack of Food: Never True Current Housing: I Have Housing Concerned About Future Housing: No Difficulty Paying Gas/Electric Bills: No Difficulty Paying for Meds: No Currently Unemployed: No Difficulty w/ Childcare or Family Care: No Comments At the time of my signature, I reviewed and agree with the nursing past medical, surgical, social, and family history. There is no relevant family history pertinent to the patient complaint. Exam Narrative: General: Well-developed, well nourished, in no apparent distress Head: Normocephalic, atraumatic Eyes: Pupils equally round and reactive to light bilaterally, EOM intact, sclera and conjunctive clear, no discharge, lids normal Ears: TMs intact and clear, ear canals clear, no drainage, grossly hearing normal. Nose: Nares patent, clear discharge, no inflammation, no sinus tenderness. Mouth: Oropharynx without lesions or masses, good dentition, MMM. Neck: Supple, trachea midline, no enlargement of anterior or posterior cervical nodes, no thyroid masses or goiter palpable. Cardio: Regular rate and rhythm, s1 and s2 normal, no murmur appreciated. Resp: Clear to auscultation bilaterally anteriorly and posteriorly, no rhonchi, rales, wheezing or rubs Course Course Emergency Course: Portions of this record may have been created with voice recognition software. Level of Care: Express Care Visit Vital Signs Vital signs: Vital Signs Temperature 36.2 C L 12/06/24 14:07 Pulse Rate 70 12/06/24 14:07 Respiratory Rate 16 12/06/24 14:07 Blood Pressure 135/61 12/06/24 14:07 Pulse Oximetry 100 12/06/24 14:07 Temperature 36.2 C L 12/06/24 14:07 Pulse Rate 70 12/06/24 14:07 Respiratory Rate 16 12/06/24 14:07 Blood Pressure 135/61 12/06/24 14:07 Pulse Oximetry 100 12/06/24 14:07 Vital signs reviewed MDM - URI/Sore Throat MDM Narrative Medical decision making narrative: At the time of visit patient is resting comfortably on the exam table. Patient appears to be nontoxic. Complaints of sore throat, runny nose, body aches, and reports pain over the cervical lymph nodes. She reports symptoms have been going on since yesterday. Denies any fevers or chills. Has taken Tylenol her symptoms last night but has not taken anything this morning. Is leaving for [place] tomorrow. Is requesting antibiotics.On exam patient has clear nasal discharge, no turbinate inflammation, TMs intact and clear, oral pharynx appears normal, tenderness to palpation over cervical lymph nodes but no enlargement, lung sounds are clear, heart rates regular rate and rhythm. Strep test was ordered. Labs: Strep test was negative in the clinic today. We will send strep for culture. Plan: I suspect patient has URI/pharyngitis. No sign of bacterial infection in the clinic. Patient is very upset that she is not getting antibiotics today. Explained to the patient that do not see any signs of bacterial infection and we will send her strep for culture if this comes back positive we will contact her and start her on antibiotics at that time. Supportive measures were discussed with the patient and they voiced understanding discharge instructions and agrees to treatment plan. Return precautions reviewed Differential Diagnosis Differential diagnosis: Likely upper respiratory infection, otitis media, sinusitis, viral infection, bronchitis, influenza, pharyngitis and other (COVID, mono) Discharge Plan Discharge Clinical Impression: Anterior cervical adenopathy URI (upper respiratory infection) Qualifiers: URI type: unspecified URI Qualified Code(s): J06.9 - Acute upper respiratory infection, unspecified Pharyngitis Qualifiers: Pharyngitis/tonsillitis etiology: unspecified etiology Qualified Code(s): J02.9 - Acute pharyngitis, unspecified Patient Disposition: Home Condition: Stable Instructions: Antibiotic Form, Pharyngitis (ED), Cold Symptoms (ED) Additional Instructions: Strep test was negative in the clinic today. We will send strep for culture if this comes back positive we will contact you in place you on antibiotics at that time. No sign of bacterial infection in the clinic today Increase fluids and stay well hydrated May take Tylenol or motrin as directed on bottle for pain/fever May use Flonase 1 spray in each nare daily May take OTC antihistamines such as Zyrtec or Claritin daily as directed on bottle May apply Vicks vapor rub to chest to open sinuses Sinus rinses for congestion Cepacol spray, cough drops, throat lozenges, warm tea with honey/lemon, gargle salt water to soothe throat BRAT diet for diarrhea Clear liquids x 24 hours then advance as tolerated for nausea/vomiting Go to the ED if you develop a worsening in your condition- high fever not controlled by Tylenol or Motrin, dehydration, weakness, lethargy, shortness of breath, or chest pain. Follow up with your PCP in 3-5 days if symptoms persist. Patient Language: Israeli Prescriptions: No Action montelukast [Singulair] 10 mg tablet 10 mg PO DAILY levocetirizine [Xyzal] 5 mg tablet 5 mg PO DAILY ipratropium bromide 42 mcg (0.06 %) spray,non-aerosol 2 spray intranasal TID Rx Instructions: administer into each nostril fluticasone propionate [Flonase Allergy Relief] 50 mcg/actuation spray,suspension 2 spray intranasal DAILY Rx Instructions: administer into each nostril Vyzulta 0.024 % drops 1 drp EACH EYE QPM dorzolamide-timolol (PF) [Cosopt (PF)] 2-0.5 % dropperette 1 drp EACH EYE BID magnesium citrate,mag oxide 250 mg capsule PO triamicentaline .Route Rx Instructions: Use 2 times daily for Luccoplaccia mometasone furoate EACH EAR 1XD hydrochlorothiazide 12.5 mg tablet 12.5 mg PO DAILY Qty: 90 2RF sotalol 80 mg tablet 80 mg PO DAILY Xarelto 20 mg tablet 20 mg PO QPM Follow-up/Referrals: UNKNOWN,DOCTOR [Primary Care Provider] Time of Disposition: 14:23 Quality NIHSS Nursing Documentation ED NIHSS nursing documentation: reviewed/agree
[2024-12-06 14:07] VITALS: BP 135/61; PULSE 70; RESP 16; TEMP 36.2; O2SAT 100
[2024-12-06 14:37] LABS: EDSTREPNEGPOS1 Negative (Negative)
== END 2024-12-06 14:40 | disposition home or self-care (01) ==
PROVIDERS: Emergency Provider Nurse Practitioner Family
DX: R59.0 Localized enlarged lymph nodes (principal); J06.9 Acute upper respiratory infection, unspecified; J02.9 Acute pharyngitis, unspecified; I25.2 Old myocardial infarction; Z85.3 Personal history of malignant neoplasm of breast; Z85.810 Personal history of malignant neoplasm of tongue
CPT/HCPCS: 87081; 87880; 99213; G0463